=== PATIENT | female | born 1955 | race Caucasian/White ===

== ENCOUNTER 2024-10-28 09:59 | Outpatient (CLI) | payer OTHER, SELFPAY ==
--- NOTE | ~2024-10-28 | MR_ITS ---
EXAMINATION: MR knee RT wo con DATE: 10/28/2024 10:31 INDICATION: Right knee pain TECHNIQUE: Magnetic resonance imaging (MRI) of the right knee was performed without intravenous contr ast. Sequences included coronal PD-weighted FSE, coronal PD-weighted FS FSE, sagittal T2-weighted FS E, sagittal PD-weighted FS FSE and axial PD weighted fat saturated FSE. COMPARISON: None. FINDINGS: Medial compartment: Medial meniscus is normal. Deep chondral ulceration with underlying subarticular edema-like signal ch li involving the anterior and medial aspect of the medial tibial plateau. Additional deep chondral ulceration at the anterior weightbearing medial femoral condyle with small region of mild subarticula r edema-like signal change at the anteriormost margin near the transition to the trochlea. Less sever e partial thickness cartilage loss without degenerative subchondral changes at the central weightbear ing medial femoral condyle. Lateral compartment: Lateral meniscus is normal. Mild partial-thickness cartilage loss with smooth chondral surface and wi thout degenerative subchondral changes along the central to posterior weightbearing lateral femoral c ondyle. Patellofemoral compartment: Deep chondral ulceration with mild chondral surface irregularity but without degenerative subchondral changes at the medial patellar facet extending to the apical ridge. Shallow partial thickness chondr al fissure involving less than 50% the cartilage thickness at the central aspect of the lateral zacarias lar facet. Partial-thickness chondral ulceration involving greater than 50% the cartilage thickness b ut without degenerative subchondral changes at the central to inferior aspect of the medial trochlea. Ligaments and tendons: Anterior and posterior cruciate ligaments are normal. The medial collateral ligament and fibular armin ateral ligament complex are normal. Mild quadriceps tendinopathy without tear. Patellar tendon is nor mal. The visualized medial and lateral hamstring tendons as well as the iliotibial band are normal. Fluid: Minimal knee joint effusion with mild synovitis. No intra-articular loose osteochondral bodies identi fied. There are several small low signal intensity loose osteochondral bodies within the dependent as pect of the large Edmond's cyst which measures 7.6 mm craniocaudally and up to 3.3 x 1.2 cm transaxial dimensions. Osseous/other: Bone alignment is normal. No fracture or pathologic marrow replacing process. IMPRESSION: 1. 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 2. Minimal right knee joint effusion with large Edmond's cyst. 3. Mild quadriceps tendinopathy without tear. Reviewed, dictated and finalized at location B. [employer]ACH[employer]PER[employer] IMPRESSION: 1. Tricompartmental osteoarthritis, severe with high-grade chondromalacia in th e medial compartment, moderate severity with moderate grade chondral malacia in the medial side of the patellofemoral compartment and mild with moderate grade chondromalacia in the lateral compartment. 2. Minimal right knee joint effusion with large Edmond's cyst. 3. Mild quadriceps tendinopathy without tear.
== END 2024-10-28 10:00 | disposition home or self-care (01) ==
PROVIDERS: PCP Nurse Practitioner Family; Visit Provider Nurse Practitioner Family
DX: M17.11 Unilateral primary osteoarthritis, right knee (principal); M94.261 Chondromalacia, right knee; M25.461 Effusion, right knee; M71.21 Synovial cyst of popliteal space [Baker], right knee; S76.111A Strain of right quadriceps muscle, fascia and tendon, initial encounter; X58.XXXA Exposure to other specified factors, initial encounter
CPT/HCPCS: 73721